=== PATIENT | female | born 1980 | race Two or more races ===

== ENCOUNTER 2024-01-19 21:28 | Emergency (ER) | payer MEDICAID ==
[~2024-01-19] VITALS: Ht 152.4 cm; Wt 105.1 kg
[2024-01-19] MEDS ORDERED: ALBUTEROL SULF 2.5 MG/0.5ML(0.5%) NEB SOLN NEB ONE (22:00)
[2024-01-19 22:10] VITALS: BP 119/66; PULSE 126; RESP 25; TEMP 97.9; O2SAT 98
[2024-01-19] MEDS: IPRATROPIUM BROM 0.5 MG/2.5ML INH SOL NEB ONE (22:11)
[2024-01-19 22:12] VITALS: RESP 26; O2SAT 97
[2024-01-19] MEDS: DexAMETHasone SOD PHOS 10MG/1ML VIAL INJ IM ONE (22:19)
--- NOTE | 2024-01-19 23:06 | DVH ---
EXAM: XY CHEST PORTABLE CLINICAL HISTORY: Shortness of breath TECHNIQUE: Single AP view of the chest WID: COMPARISON: None FINDINGS: Lines and tubes: None Chest: The heart size and pulmonary vasculature is within normal limits. No pleural effusion, pneumothorax, or consolidation. The osseous structures are grossly intact. IMPRESSION: No acute cardiopulmonary abnormality.
[2024-01-19] MEDS ORDERED: DEXT60TA4 PO (23:37)
[2024-01-19] MEDS ORDERED: BENZ100C97 PO (23:37)
--- NOTE | 2024-01-19 23:37 | ED.PDOC ---
SOB-HPI HPI Comments This patient is a pleasant but morbidly obese and histrionic 43-year-old female who arrives to the ED with complaints of shortness a breath throughout the day. Patient was gasping for air without accessory muscle use and satting and near 100%. Patient denies any history of asthma or COPD. Patient states that she had shortness a breath today and wound of utilizing an entire albuterol inhaler that belonged to a friend of hers as well as taking Xanax to address anxiety concerns. Patient denies any fever nausea or vomiting. Chief Complaint: Shortness of Breath Time Seen by MD: 21:37 Reviewed notes: Nurses Notes Information Source: Patient, Friend Mode of Arrival: Ambulatory Severity: Moderate Timing: Hours Duration: Since onset Context: At Rest PE Risk Factors: None History of: Anxiety, Hyperventilation Prehospital treatment: Treatment Associated Signs and Symptoms: None Past Medical History PAST MEDICAL HISTORY: Anxiety Surgical History: Denies all surgeries EDGER RUNNER History: No Pertinent EDGER RUNNER History Family History Family History: Reviewed,noncontributory to illness, No family hx of Cancer, No family hx of DM, No family hx of Heart vianca, No family hx of HTN, No family hx ofKidney vianca, No family hx of Liver vianca, No family hx of Lung vianca, No family hx of Stroke Social History Smoker: Non-Smoker Alcohol: Denies ETOH Use Drugs: Denies Drug Use Lives In: Home Constitutional: denies: chills, diaphoresis, fatigue, fever, malaise, sweats, weakness, others EENTM: denies: blurred vision, double vision, ear bleeding, ear discharge, ear drainage, ear pain, ear ringing, eye pain, eye redness, hearing loss, mouth pain, mouth swelling, nasal discharge, nose bleeding, nose congestion, nose pain, photophobia, tearing, throat pain, throat swelling, voice changes, others Respiratory: reports: shortness of breath; denies: cough, hemoptysis, orthopnea, SOB at rest, SOB with excertion, stridor, wheezing, others Cardiovascular: denies: chest pain, dizzy spells, diaphoresis, Dyspnea on exertion, edema, irregular heart beat, left arm pain, lightheadedness, palpitations, PND, syncope, others Gastrointestinal: denies: abdomen distended, abdominal pain, blood streaked bowels, constipated, diarrhea, dysphagia, difficulty swallowing, hematemesis, melena, nausea, poor appetite, poor fluid intake, rectal bleeding, rectal pain, vomiting, others Genitourinary: denies: abnormal vagina bleeding, burning, dyspareunia, dysuria, flank pain, frequency, hematuria, incontinence, pain, , vagina discharge, urgency, others Neurological: denies: dizziness, fainting, headache, left sided numbness, left sided weakness, numbness, paresthesia, pre-existing deficit, right sided numbness, right sided weakness, seizure, speech problems, tingling, tremors, weakness, others Musculoskeletal: denies: back pain, gout, joint pain, joint swelling, muscle pain, muscle stiffness, neck pain, others Integumetry: denies: bruises, change in color, change in hair/nails, dryness, laceration, lesions, lumps, rash, wounds, others Allergic/Immunocompromised: denies: Difficulty Healing, Frequent Infections, Hives, Itching, others Hematologic/Lymphatic: denies: anemia, blood clots, easy bleeding, easy bruising, swollen glands, others Endocrine: denies: excessive hunger, excessive sweating, excessive thirst, excessive urination, flushing, intolerance to cold, intolerance to heat, unexplained weight gain, unexplained weight loss, others Psychiatric: reports: anxiety; denies: bipolar disorder, depression, hopeless, panic disorder, schizophrenia, sleepless, suicidal, others Physical Exam General Appearance: Moderate Distress (Patient was very histrionic and breathing excessively without need. Patient states she was having has some congestion that will not go away.), Obese HEENT: Normal ENT Inspection, Pharynx Normal, TMs Normal Neck: Full Range of Motion, Non-Tender, Normal, Normal Inspection Respiratory: Chest Non-Tender, Lungs Clear, No Accessory Muscle Use, No Respiratory Distress, Normal Breath Sounds, Other (Unremarkable auscultation bilateral lung sanchez.) Cardiovascular: No Edema, No JVD, No Murmur, No Gallop, Normal Peripheral Pulses, Regular Rate/Rhythm Breast Exam: Deferred Gastrointestinal: No Organomegaly, Non Tender, No Pulsatile Mass, Normal Bowel Sounds, Soft Genitalia: Deferred Pelvic: Deferred Rectal: Deferred Extremities: No calf tenderness, Normal capillary refill, Normal inspection, Normal range of motion, Non-tender, No pedal edema Neurologic: Alert, roller skates assembler II-XII nml as Tested, No Motor Deficits, Normal Affect, Normal Mood, No Sensory Deficits Cerebellar Function: Normal Reflexes: Normal Skin: Dry, Normal Color, Warm Lymphatic: No Adenopathy Was a procedure done? Was a procedure done?: No Differential Dx Differential Diagnosis: Anxiety, Asthma, Bronchitis, Panic Attack, Pneumonia, URI X-Ray, Labs, Meds, VS Vital Signs Date Time Temp Pulse Resp B/P (MAP) Pulse Ox O2 Delivery O2 Flow Rate FiO2 01/19/24 22:12 26 97 Room Air* 0 21 01/19/24 22:10 126 25 98 Room Air* 0 21 01/19/24 22:10 97.9 126 26 119/66 (83) 98 97.9 01/19/24 21:57 131 01/19/24 21:56 98.1 137 30 130/53 (78) 99 Current Medications Medications (Trade) Dose Ordered Sig/Alexandre Route Start Time Stop Time Status Last Admin Ipratropium [place] (Atrovent Medneb) 0.5 mg ONCE ONCE NEB 01/19/24 22:00 01/19/24 22:01 DC 01/19/24 22:11 Dexamethasone Sodium Phosphate (Decadron Injection) 10 mg ONCE ONCE IM 01/19/24 22:00 01/19/24 22:01 DC 01/19/24 22:19 X-Ray, Labs, Meds, VS Comment Patient had good improvement of symptoms status post medication dispensed at the ED today. All studies performed the ED today were evaluated by me personally. Imaging studies were unremarkable for any acute pulmonary concern. No consolidation noted. EKG revealed a sinus tachycardia with a rate of 131. Nelson tricular premature complexes at artifact in chest leads. IN interval of 77 and a QT interval of 297. Relatively unremarkable EKG. Patient appears to be suffering from a viral upper respiratory illness. I will send the patient home with supportive medication and advised the patient to hydrate well and practice good nutrition throughout illness event. Time of 1ST Reevaluation: 23:32 Reevaluation 1ST: Improved Consultation: PCP Patient Education/Counseling: Diagnosis, Treatment Family Education/Counseling: Diagnosis, Treatment Departure 1 Departure Time of Disposition: 23:36 Impression: Primary Impression: Viral upper respiratory illness Disposition: 01 HOME / SELF CARE / HOMELESS Condition: Stable Additional Instructions: Advised patient utilize medication as needed for symptomatic relief as well as good hydration and healthy nutrition throughout illness event. e-Prescriptions Benzonatate (Benzonatate) 100 Mg Cap 1 CAP PO TID, #20 CAP Prov: KUMAR DECKER PAC 01/19/24 Dextromethorphan-Guaifenesin (Mucinex Dm Maximum Streng) 1 Tab Tab 1 TAB PO BID, #20 TAB Prov: KUMAR DECKER PAC 01/19/24 Discharged With: Self, Friend Critical Care Note Critical Care Time?: No Stability Stability form required: No Heart Score Heart Score: Heart Score Response (Comments) Value History Slightly Suspicious 0 EKG Repolarization Disturb 1 Age <45 0 Risk Factors 1 or 2 risk factors 1 Troponin N/A 0 Total 2 KUMAR DECKER PAC Jan 19, 2024 23:37
== END 2024-01-19 23:46 | disposition home or self-care (01) ==
LOC: ER 21:28
DX: J06.9 Acute upper respiratory infection, unspecified (principal); B97.89 Other viral agents as the cause of diseases classified elsewhere; F41.9 Anxiety disorder, unspecified; E66.01 Morbid (severe) obesity due to excess calories; Z68.42 Body mass index [BMI] 45.0-49.9, adult
CPT/HCPCS: 71045; 93005; 94640; 99283; J1100